=== PATIENT | male | born 1990 | race Asian ===

== ENCOUNTER 2017-11-27 17:38 | Emergency (ER) | payer OTHER ==
[2017-11-27] MEDS: LIDOCAINE 2% MDV 20 ML VIAL SC (19:30)
[2017-11-27] MEDS: ACETAMINOPHEN 325 MG TAB PO (19:41)
== END 2017-11-27 20:06 | disposition home or self-care (01) ==
LOC: M ED 17:38
DX: S01.112A Laceration without foreign body of left eyelid and periocular area, initial encounter (principal); W22.8XXA Striking against or struck by other objects, initial encounter; Y92.89 Other specified places as the place of occurrence of the external cause; Y99.0 Civilian activity done for income or pay; F17.210 Nicotine dependence, cigarettes, uncomplicated
CPT/HCPCS: 12011

== ENCOUNTER 2018-12-20 13:10 | Emergency (ER) | payer OTHER ==
[~2018-12-20] VITALS: Ht 175.3 cm; Wt 111.3 kg
[2018-12-20] MEDS ORDERED: ADACEL/BOOSTRIX VACCINE (DIPHTH/PERTUSS/ACELL/TETANUS)0.5ML SYR (90715) IM ONE (13:45)
[2018-12-20] MEDS ORDERED: LIDOCAINE 1% MDV 20ML VIAL INFIL ONE (14:00)
[2018-12-20] MEDS ORDERED: KEFL500C17 PO (15:01)
--- NOTE | 2018-12-20 15:03 | REP ---
REASON: Trauma. PRIORS: None. FINDINGS: The joint spaces are symmetric and relatively well maintained. There is no evidence of acute fracture or destructive osseous lesion. IMPRESSION: Negative. Electronically Signed by Juan Antonio Downing DO 12/20/2018 03:16 P
[2018-12-20 15:09] VITALS: BP 136/80
[2018-12-20] MEDS ORDERED: NEOSPORIN OINT 0.9 GM PKT (FLOOR STOCK) TOP ONE (15:15)
== END 2018-12-20 15:28 | disposition home or self-care (01) ==
LOC: M ED 13:10
DX: S61.212A Laceration without foreign body of right middle finger without damage to nail, initial encounter (principal); Y92.009 Unspecified place in unspecified non-institutional (private) residence as the place of occurrence of the external cause; W31.2XXA Contact with powered woodworking and forming machines, initial encounter; F17.200 Nicotine dependence, unspecified, uncomplicated

== ENCOUNTER 2020-05-13 15:29 | Emergency (ER) | payer OTHER ==
[~2020-05-13] VITALS: Ht 175.3 cm; Wt 112.3 kg
[~2020-05-13 15:29] MED LIST: KEFL500C17 PO
[2020-05-13 16:15] LABS: BASO # 0.1 10^3/uL (0.0-0.2); BASO % 0.5 % (0.0-1.0); EOS # 0.4 10^3/uL (0.0-0.5); HEMATOCRIT 41.7 % (42.0-52.0); HEMOGLOBIN 13.9 g/dl (13.5-17.5); LYMPH # 4.1 10^3/uL (1.5-5.0); LYMPH % 44.4 % (24.0-44.0); MEAN CORPUSCULAR HEMOGLOBIN 30.1 pg (27.0-33.0); MEAN CORPUSCULAR HGB CONC 33.3 g/dl (32.0-36.5); MEAN CORPUSCULAR VOLUME 90.3 fl (80.0-96.0); MONO # 0.7 10^3/uL (0.0-0.8); MONO % 7.9 % (2.0-8.0); NEUTROPHILS % 42.9 % (36.0-66.0); PLATELET COUNT, AUTOMATED 215 10^3/uL (150-450); RED BLOOD COUNT 4.62 10^6/uL (4.30-6.10); WHITE BLOOD COUNT 9.2 10^3/uL (4.0-10.0)
--- NOTE | 2020-05-13 16:15 | REP ---
INDICATION: CHEST PAIN. COMPARISON: None. TECHNIQUE: SINGLE PORTABLE AP VIEW OF THE CHEST WAS PERFORMED. FINDINGS: THERE IS NO ACUTE INFILTRATE OR PULMONARY EDEMA. LUNGS ARE CLEAR. HEART IS NOT SIGNIFICANTLY ENLARGED. MEDIASTINAL SILHOUETTE IS UNREMARKABLE. THE VISUALIZED OSSEOUS STRUCTURES ARE INTACT. IMPRESSION: NO ACUTE PULMONARY DISEASE. <Electronically signed by Michele Walters > 05/13/20 [id number]
[2020-05-13 17:01] LABS: ALBUMIN 3.9 GM/DL (3.2-5.2); ALT/SGPT 87 U/L (12-78); BILIRUBIN,DIRECT < 0.1 MG/DL (0.0-0.2); BILIRUBIN,TOTAL 0.8 MG/DL (0.2-1.0); LIPASE 104 U/L (73-393); TOTAL PROTEIN 7.7 GM/DL (6.4-8.2)
[2020-05-13 18:00] VITALS: BP 119/67
--- NOTE | 2020-05-13 20:14 | ECGEPIP ---
[facility] - ED Test Date: 2020-05-13 Pat Name: LAW ALMARAZ Department: Room: - Gender: Male Assistant Service Manager: DEEPTHI : 1990 Requested By: Adrianne Greer Order Number: [id number] Reading MD: Adrianne Greer Measurements Intervals [place]us Rate: 78 P: 60 AR: 168 QRS: 51 QRSD: 114 T: -46 QT: 386 QTc: 440 Interpretive Statements Normal sinus rhythm T wave abnormality No prior ischemia Electronically Signed on 05-13-2020 20:14:58 EST by Adrianne Greer
== END 2020-05-13 18:03 | disposition home or self-care (01) ==
LOC: EDBD 15:29 → M ED 15:29
DX: R11.2 Nausea with vomiting, unspecified (principal); R19.7 Diarrhea, unspecified; G47.33 Obstructive sleep apnea (adult) (pediatric)
CPT/HCPCS: 36415; 71045; 80047; 80076; 83690; 84484; 85025; 85379; 93005; 93041; 94760; 99285; U0003